=== PATIENT | female | born 1975 | race Caucasian/White ===

== ENCOUNTER 2020-10-31 19:39 | Emergency (ER) | payer MEDICAID, SELFPAY ==
[2020-10-31 19:40] VITALS: BP 157/84; PULSE 99; RESP 20; TEMP 37.2; O2SAT 97; BMI 37.9
[2020-10-31 21:19] VITALS: RESP 16
--- NOTE | 2020-10-31 21:41 | EX.ED.VISEXT ---
HPI History of Present Illness Chief Complaint: Bite Informant: patient Occured/Mechanism Comment: Bit by insect left index finger Onset/Context/Timing Current Severity: Moderate Maximum Severity: Moderate Worsened by: Nothing Relieved by: Nothing Associated Symptoms Associated Symptoms: Negative for Parasthesia, Weakness and Loss of Funtion Narrative Narrative: Patient presents because of insect bite to left finger. She presents today because of swelling and redness. There is no red streak. She denies fever or chills. She denies respiratory, GI or hemodynamic instability. Tetanus Immunization: <5 years Prior similar symptoms: No Recent Illness/Hospitalization: No ROS ROS ED Constitutional Constitutional ED: Denies chills, fever(s), sweats or weight loss Eyes Eyes: Denies blurry vision or change in vision ENT ENT ED: Denies rhinorrhea or sore throat Cardiovascular Cardiovascular: Denies chest pain or palpitations Respiratory/Chest Respiratory/Chest: Denies cough, dyspnea or dyspnea on exertion Gastrointestinal Gastrointestinal: Denies diarrhea, nausea or vomiting Integumentary Reports rash Hematologic/Lymphatic Hematologic/Lymphatic: Denies easy bleeding or easy bruising Allergic/Immunologic Allergic/Immunologic ED: Denies mouth swelling, tongue swelling or urticaria PFSH PFS Medical History Asthma COPD (chronic obstructive pulmonary disease) Hypertension Myocardial infarct Home Medications albuterol sulfate 2 puff INHALATION Q4H PRN PRN 10/31/20 [History Last Taken Unknown] aspirin 81 mg PO DAILY 10/31/20 [History Last Taken Unknown] famotidine 20 mg PO BID #10 tablet 10/31/20 [Rx Last Taken Unknown] loratadine [Claritin] 10 mg PO DAILY #5 tab 10/31/20 [Rx Last Taken Unknown] losartan 75 mg PO DAILY 10/31/20 [History Last Taken Unknown] Allergy/AdvReac Type Severity Reaction Status Date / Time bee venom protein (honey bee) AdvReac Shortness Verified 10/31/20 19:42 of breath Social History (Updated 10/31/20 @ 21:[address] Butch Davila MD) Smoking Status: Unknown if ever smoked alcohol intake: current alcohol intake frequency: holidays/special occasions only substance use type: does not use EXAM Physical Exam Const Vital Signs: 10/31/20 19:40 10/31/20 21:19 Temperature 98.9 F Temperature Source Temporal Pulse Rate 99 Respiratory Rate 20 H 16 Blood Pressure 157/84 H Blood Pressure Mean 108 Pulse Ox 97 Oxygen Delivery Method Room Air Positive well nourished, well developed and obese General Appearance ED: well developed Nutritional Appearance: obese HEENT HEENT Narrative: There is no evidence of angioedema. atraumatic Eyes PERRL and EOMs intact bilaterally Neck full ROM and no lymphadenopathy Neck Narrative: Trachea is midline. There is no inspiratory stridor. General: tenderness Resp normal respiratory effort and clear to auscultation bilaterally Cardio regular rate, regular rhythm, S1 normal heart sound, S2 normal heart sound and no murmurs Extremity full ROM; Negative for normal to inspection Extremity Narrative: Patient has local reaction due to insect bite. There is no evidence of cellulitis. General Extremety ED: Yes edema; Negative for deformity General Extremity: edema; Negative for deformity Neuro oriented x3, CN's II-XII intact bilaterally and no sensory deficits noted Sensorium / Orientation: alert Motor Exam: strength 5/5 throughout Psych mental status grossly normal and thought process normal Skin Skin Narrative: Rash due to allergic local reaction MDM MDM MDM Narrative Medical decision making narrative: Patient was informed the reason they are swelling because his compartments in the hand. This is not unexpected. There is no evidence of infection. This is a local reaction. She was treated with H1 and H2 blockers. She does not require epinephrine. Patient received first dose in the emergency Pe[facility]ra prescriptions were filled here at the hospital. Discharge Plan Triage Chief Complaint: Bite ED Provider: Butch Davila Dx/Rx/DC Orders Clinical Impression: Allergic reaction Instructions: ED General Allergic Reactions Prescriptions: New famotidine [famotidine] 20 MG tablet 20 mg PO BID Qty: 10 RF: 0 loratadine [Claritin] 10 mg tablet 10 mg PO DAILY Qty: 5 RF: 0 No Action losartan 50 mg tablet 75 mg PO DAILY RF: 0 aspirin 81 mg tablet,delayed release (DR/EC) 81 mg PO DAILY RF: 0 albuterol sulfate 90 mcg/actuation HFA aerosol inhaler 2 puff INHALATION Q4H PRN PRN (Reason: Shortness Of Breath) RF: 0 Primary Care Provider: Care Physician,No Primary Referrals: Care Physician,No Primary [Primary Care Provider] - Doctor,Your [STAFF PHYSICIAN] - As Needed Disposition Disposition: Home, Self Care
[2020-10-31] MEDS: Loratadine 10 MG Tablet PO (22:06)
[2020-10-31] MEDS: Famotidine 20 MG Tablet PO (22:06)
[2020-10-31 22:08] VITALS: RESP 16
== END 2020-10-31 22:08 | disposition home or self-care (01) ==
PROVIDERS: Emergency Provider Emergency Medicine
DX: S60.461A Insect bite (nonvenomous) of left index finger, initial encounter (principal); W57.XXXA Bitten or stung by nonvenomous insect and other nonvenomous arthropods, initial encounter; Y93.9 Activity, unspecified; Y92.9 Unspecified place or not applicable; E66.9 Obesity, unspecified; Z68.37 Body mass index [BMI] 37.0-37.9, adult; J44.9 Chronic obstructive pulmonary disease, unspecified; I10 Essential (primary) hypertension; I25.2 Old myocardial infarction; Z79.82 Long term (current) use of aspirin; Z79.899 Other long term (current) drug therapy
CPT/HCPCS: 99283

== ENCOUNTER 2021-05-09 13:42 | Emergency (ER) | payer MEDICAID, SELFPAY ==
[2021-05-09 13:43] VITALS: BP 178/94; PULSE 108; RESP 22; TEMP 36.3; O2SAT 100; BMI 37.3
[2021-05-09 14:16] VITALS: BP 178/94; PULSE 108; RESP 22; TEMP 36.3; O2SAT 100
--- NOTE | 2021-05-09 14:16 | EKG12_ITS ---
Test Reason : PALPS Blood Pressure : / mmHG Vent. Rate : 098 BPM Atrial Rate : 098 BPM P-R Int : 112 ms QRS Dur : 084 ms QT Int : 372 ms P-R-T Axes : 025 001 016 degrees QTc Int : 474 ms Normal sinus rhythm Normal ECG Confirmed by PAMELA GLYNN, KIAN ([id number]), proposal editor YE MCKENZIE ([id number]) on 05/10/2021 9:24:31 AM Referred By: BARON Confirmed By:KIAN SANTIAGO MD
--- NOTE | 2021-05-09 14:16 | RAD_ITS ---
STUDY: X-RAY CHEST REASON FOR EXAM: Female, 46 years old. Cough TECHNIQUE: Single AP portable view of the chest. COMPARISON: None. FINDINGS: EKG electrodes are seen. Questionable mild early right lower lobe infiltrate. There is no demonstrated pleural abnormality. Normal size heart. Normal mediastinum and gigi. Normal visualized pulmonary arteries. Normal visualized aortic arch and descending thoracic aorta. Normal visualized thoracic spine. Normal visualized ribs, clavicles, and shoulders. There is no demonstrated abnormality of the visualized soft tissue structures of the upper abdomen. RAD/Chest 1 View (Portable) IMPRESSION: Questionable mild early right lower lobe infiltrate. Electronically Signed: Néstor Pace MD at 15:08 EST ,
--- NOTE | 2021-05-09 14:17 | EX.ED.DYSGE1 ---
HPI History of Present Illness Chief Complaint: General Illness Informant: patient Narrative Narrative: Patient's states she wants to know if she has had a heart attack. About 3 days ago she started coughing more. No sputum production. She states she is wheezing more. She has a ProAir inhaler but she is running out and it does not seem to help. She has some soreness on the left when she coughs. She also states her heart feels like a pair of butterfly wings that flap now and then. This lasts for a second and only occurs randomly. This does not cause pain. She is not actually dyspneic. She has had no nausea vomiting or diaphoresis. No congestion or sore throat. No change in taste or smell. No diarrhea. She is a smoker and was counseled to quit. Patient's had no recent travel, surgery, immobilization, personal or family history of DVT or PE. Patient states that she had a heart attack about 8 or 10 years ago. She states she was somewhere in a hospital in [place]. They did a stress test. She does not know if they did blood work. They never did a heart catheterization. They told her she should take aspirin which she has been doing. No follow-up was arranged. [facility] Medical History Asthma COPD (chronic obstructive pulmonary disease) Hypertension Myocardial infarct Home Medications albuterol sulfate 2 puff INHALATION Q4H PRN PRN 10/31/20 [History Last Taken Unknown] aspirin 81 mg PO DAILY 10/31/20 [History Last Taken Unknown] famotidine 20 mg PO BID #10 tablet 10/31/20 [Rx Last Taken Unknown] loratadine [Claritin] 10 mg PO DAILY #5 tab 10/31/20 [Rx Last Taken Unknown] losartan 75 mg PO DAILY 10/31/20 [History Last Taken Unknown] albuterol sulfate 2.5 mg INHALATION Q4H PRN #25 vial 05/09/21 [Rx Last Taken Unknown] doxycycline monohydrate 100 mg PO BID #20 cap 05/09/21 [Rx Last Taken Unknown] prednisone 60 mg PO DAILY #15 tab 05/09/21 [Rx Last Taken Unknown] Allergy/AdvReac Type Severity Reaction Status Date / Time amoxicillin Allergy Hives Verified 05/09/21 13:45 Penicillins [PCN] Allergy Hives Verified 05/09/21 13:45 bee venom protein (honey bee) AdvReac Shortness Verified 05/09/21 13:45 of breath Social History Smoking Status: Current every day smoker tobacco type: cigarettes alcohol intake: current alcohol intake frequency: holidays/special occasions only substance use type: does not use ROS ROS ED Constitutional Constitutional ED: Denies chills, fever(s) or subjective Eyes Eyes: Denies blurry vision ENT ENT ED: Denies rhinorrhea or sore throat Cardiovascular Cardiovascular: Reports chest pain and palpitations; Denies racing heartbeat Respiratory/Chest Respiratory/Chest: Reports cough; Denies dyspnea, dyspnea on exertion or sputum Gastrointestinal Gastrointestinal: Denies abdominal pain, diarrhea, nausea or vomiting Genitourinary Genitourinary ED: Denies dysuria Musculoskeletal Musculoskeletal: Denies myalgias Integumentary Denies rash Neurologic Neurologic: Reports headache(s) and other Details: She states that sometimes she has a headache if she is coughing a lot. And no other times that she have this. Psychiatric Psychiatric: Denies depression Endocrine Endocrinology: Denies polydipsia or polyuria Allergic/Immunologic Allergic/Immunologic ED: Denies mouth swelling or urticaria EXAM Physical Exam Const Vital Signs: 05/09/21 13:43 05/09/21 14:16 05/09/21 14:27 Temperature 97.4 F L 97.4 F L Temperature Source Temporal Temporal Pulse Rate 108 H 108 H 90 Respiratory Rate 22 H 22 H 20 H Respiratory Effort Respiratory Pattern Normal Blood Pressure 178/94 H 178/94 H Blood Pressure Mean 122 122 Pulse Ox 100 100 Oxygen Delivery Method Room Air Room Air 05/09/21 14:29 Temperature Temperature Source Pulse Rate Respiratory Rate Respiratory Effort Normal Non-Labored Respiratory Pattern Blood Pressure Blood Pressure Mean Pulse Ox Oxygen Delivery Method Positive well nourished, well developed and obese General Appearance ED: well developed and NAD; Negative for cyanotic or diaphoretic Nutritional Appearance: obese HEENT Reports moist mucous membranes Negative for trauma Eyes General Eye ED: Negative for pale conjunctiva or scleral icterus Neck no JVD Chest Wall inspection of chest normal Chest Narrative: Mild left chest wall tenderness in the area that she points to with her finger that hurts with a cough. Resp normal respiratory effort and No clear to auscultation bilaterally Resp Narrative: Patient does have some mild diffuse expiratory wheeze. It is brought out significantly if she takes a deep breath. Effort and Inspection: Negative for pain with movement Auscultation: wheezes; Negative for rales or rhonchi Cardio regular rate and regular rhythm Rate: other Other Details: Heart rate is about 90 at this time. GI normal to inspection, nondistended, normoactive bowel sounds and non-tender Palpation: soft Back/Spine no CVA tenderness Extremity normal to inspection General Extremety ED: Negative for edema or tenderness General Extremity: Negative for edema Neuro oriented x3 Sensorium / Orientation: alert Psych mental status grossly normal Skin no rashes or lesions noted MDM MDM MDM Narrative Medical decision making narrative: Patient CBC is normal. Electrolytes show no marked abnormalities. Despite several days of symptoms, her troponin is 4. Her x-ray does hint of a mild right lower lobe infiltrate. Patient now states she has been getting feelings where she is very cold. She states she could not have Covid because she would have a fever and she feels cold all the time. I again offered to check Covid but she does not want that done. With her increasing cough, chills, x-ray findings I will start antibiotics. She states a azithromycin is hard to get at her drugstore so I will write for doxycycline. We will also write for steroids. She now states that she does have a new albuterol inhaler and refills. But she has no liquid medicine and she does have access to a nebulizer. We also discussed returning if she has worsening pain, hemoptysis, worsening fevers, vomiting or other concerns. Lab Data Attestation: I reviewed the patient's lab results. Labs: Laboratory Results - last 24 hr 05/09/21 05/09/21 14:25 14:25 WBC 6.2 RBC 4.16 L Hgb 13.0 Hct 38.3 MCV 92.1 MCH 31.3 MCHC 33.9 RDW Std Deviation 38.4 RDW Coeff of Gloria 11.3 L Plt Count 266 MPV 9.4 Immature Gran % (Auto) 0.200 Neut % (Auto) 51.1 Lymph % (Auto) 37.9 [place] % (Auto) 8.0 Eos % (Auto) 2.3 Baso % (Auto) 0.5 Absolute Neuts (auto) 3.2 Absolute Lymphs (auto) 2.36 Nucleated RBC % 0 Sodium 140 Potassium 4.1 Chloride 110 H Carbon Dioxide 27.0 Anion Gap 3 L BUN 11 Creatinine 0.78 Estim Creat Clear Calc 95.38 Est GFR (MDRD) Af Amer 102 Est GFR (MDRD) Non-Af 84 BUN/Creatinine Ratio 14.2 Glucose 99 Calcium 8.6 Troponin I High Sens 4 Radiography Diagnostic Testing: Clinical Impression(s) from Imaging Studies Chest X-Ray 05/09/21 14:16 IMPRESSION: Questionable mild early right lower lobe infiltrate. Electronically Signed: Néstor Pace MD at 15:08 EST , EKG Initial EKG: Comments: EKG done for dyspnea, cough, chest pain and fluttering. EKG read by me shows normal sinus rhythm with a rate of 98. No ventricular ectopy. Nonspecific diffuse ST changes but no sign of acute ST elevation or depression. LA interval, QRS duration and QTc are normal. Discharge Plan Triage Chief Complaint: General Illness ED Provider: Chad Lind Dx/Rx/DC Orders Clinical Impression: Asthma exacerbation, Pneumonia Instructions: ED Asthma, Acute (Adult), ED Pneumonia (Adult) Prescriptions: New albuterol sulfate 2.5 MG/3 ML solution for nebulization 2.5 mg inhalation Q4H PRN Qty: 25 RF: 0 prednisone 20 MG tablet 60 mg PO DAILY Qty: 15 RF: 0 doxycycline monohydrate 100 MG capsule 100 mg PO BID Qty: 20 RF: 0 No Action losartan 50 mg tablet 75 mg PO DAILY RF: 0 aspirin 81 mg tablet,delayed release (DR/EC) 81 mg PO DAILY RF: 0 albuterol sulfate 90 mcg/actuation HFA aerosol inhaler 2 puff INHALATION Q4H PRN PRN (Reason: Shortness Of Breath) RF: 0 famotidine [famotidine] 20 MG tablet 20 mg PO BID Qty: 10 RF: 0 loratadine [Claritin] 10 mg tablet 10 mg PO DAILY Qty: 5 RF: 0 Referrals: TIMOTHY PATTEN [Other] - 3-5 Days if not improving Disposition Disposition: Home, Self Care
[2021-05-09 14:27] VITALS: PULSE 90; RESP 20
[2021-05-09] MEDS: Ipratropium/Albuterol Sulfate 3 ML AMPUL.NEB INHALATION (14:27)
[2021-05-09] MEDS: predniSONE 20 MG Tablet 60 MG PO (14:28)
[2021-05-09 14:36] LABS: Absolute Lymphocyte Count 2.36 X10^3/uL (0.83-4.51); Absolute Neutrophil Count 3.2 X10^3/uL (2.0-7.7); Basophil# 0.03 X10^3/uL; Basophil% 0.5 % (0-1); Eosinophil# 0.14 X10^3/uL; Eosinophils% 2.3 % (0-5); Hematocrit 38.3 % (37-47); Lymphocyte # 2.36 X10^3/ul (0.83-4.51); Lymphocyte % 37.9 % (19-41); Mean Corp Hgb Conc 33.9 g/dL (32-36); Mean Corpuscular Hgb 31.3 pg (27.0-32.0); Mean Corpuscular Volume 92.1 fL (81-99); Mean Platelet Vol. 9.4 fl (6.2-12.0); NRBC Flagged by Analyzer 0 % (0-5); Neutrophil # 3.18 X10^3/uL (2.7-7.7); Neutrophil % 51.1 % (47-70); Platelet Count 266 K/mm3 (150-450); RBC Distribution Width CV 11.3 % (11.6-14.6); RBC Distribution Width SD 38.4 fl (35.1-43.9); Red Blood Count 4.16 M/mm3 (4.2-5.4); White Blood Count 6.2 K/mm3 (4.4-11.0)
[2021-05-09 14:53] LABS: Anion Gap 3 (5-15); BUN 11 mg/dL (7-18); BUN/Creat Ratio 14.2 RATIO (10-20); Calcium,Total 8.6 mg/dL (8.5-10.1); Chloride 110 mmol/L (98-107); Creatinine, Serum 0.78 mg/dL (0.55-1.02); EST Glomerular Filtration Rate 84 mL/min (>60); Est Glom Filt Rate - Afr Amer 102 mL/min (>60); Estimated Creatinine Clearance 95.38 ml/min; Glucose 99 mg/dL (74-106); Potassium 4.1 mmol/L (3.5-5.1); Sodium Level 140 mmol/L (136-145); Troponin-I HS 4 pg/mL (3.0-54.0)
[2021-05-09 16:14] VITALS: PULSE 93; RESP 20; O2SAT 99
[2021-05-09] MEDS: Doxycycline 100 MG CAPSULE PO (16:14)
== END 2021-05-09 16:16 | disposition home or self-care (01) ==
PROVIDERS: Emergency Provider Emergency Medicine; Visit Provider Emergency Medicine
DX: J44.1 Chronic obstructive pulmonary disease with (acute) exacerbation (principal); J44.0 Chronic obstructive pulmonary disease with (acute) lower respiratory infection; J18.9 Pneumonia, unspecified organism; I25.2 Old myocardial infarction; I10 Essential (primary) hypertension; E66.9 Obesity, unspecified; F17.210 Nicotine dependence, cigarettes, uncomplicated; Z79.82 Long term (current) use of aspirin; Z79.899 Other long term (current) drug therapy; Z68.37 Body mass index [BMI] 37.0-37.9, adult
CPT/HCPCS: 71045; 80048; 84484; 85025; 93005; 94640; 99283; A4216

== ENCOUNTER 2022-05-25 09:30 | Emergency (ER) | payer MEDICAID, SELFPAY ==
[2022-05-25 09:31] VITALS: BP 161/100; PULSE 88; RESP 18; TEMP 36.6; O2SAT 100; BMI 38.0
--- NOTE | 2022-05-25 09:49 | EKG12_ITS ---
Test Reason : SOB Blood Pressure : / mmHG Vent. Rate : 068 BPM Atrial Rate : 068 BPM P-R Int : 124 ms QRS Dur : 076 ms QT Int : 426 ms P-R-T Axes : 002 015 016 degrees QTc Int : 452 ms Normal sinus rhythm with sinus arrhythmia Normal ECG Confirmed by EVELYN GLYNN, AMY ([id number]), editor map YE MCKENZIE ([id number]) on 05/28/2022 12:35:50 PM Referred By: BRIDGETTE Confirmed By:AMY RIVAS MD
--- NOTE | 2022-05-25 09:51 | EDS_ITS ---
HPI HPI - URI History of Present Illness Chief Complaint: Cough Informant: patient Narrative Narrative: 2-week history sore throat slight productive cough with sinus congestion. No fevers. Cough causing headaches. No vomiting or diarrhea. Reports wheezing. History of asthma and COPD. Reports does not have a PCP. She states she had an OK 5 years ago with no catheter intervention. She is treated medically. Currently on aspirin and blood pressure medications. Tobacco history. She is followed by cardiology Dr. Kiser. She states that did not have a PCP. She states she has been using honey, humidifier, Mucinex. She has rescue inhalers both nebulizer and MDI. Prior similar symptoms: Yes ROS ROS ED Constitutional Constitutional ED: Denies chills, fever(s) or sweats Eyes Eyes: Denies change in vision ENT ENT ED: Denies dysphagia or sore throat Cardiovascular Cardiovascular: Reports palpitations; Denies chest pain, leg edema or racing heartbeat Respiratory/Chest Respiratory/Chest: Reports cough and dyspnea; Denies dyspnea on exertion Gastrointestinal Gastrointestinal: Denies abdominal pain, diarrhea, nausea or vomiting Genitourinary Genitourinary ED: Denies dysuria, hematuria or urinary frequency Musculoskeletal Musculoskeletal: Denies back pain, extremity pain or neck pain Integumentary Denies rash or wounds Neurologic Neurologic: Denies headache(s), paresthesias or weakness [facility] History Asthma COPD (chronic obstructive pulmonary disease) Hypertension Myocardial infarct Home Medications albuterol sulfate 90 mcg/actuation aerosol inhaler 2 puff inhalation Q4H PRN PRN Shortness Of Breath 10/31/20 [History Last Taken Unknown] aspirin 81 mg tablet,delayed release 81 mg PO DAILY 10/31/20 [History Last Taken Unknown] famotidine 20 mg tablet 20 mg PO BID #10 TABLETS 10/31/20 [Rx Last Taken Unknown] loratadine 10 mg tablet (Claritin) 10 mg PO DAILY #5 tabs 10/31/20 [Rx Last Taken Unknown] losartan 50 mg tablet 75 mg PO DAILY 10/31/20 [History Last Taken Unknown] albuterol sulfate 2.5 mg/3 mL (0.083 %) solution for nebulization 2.5 mg (3 mL) inhalation Q4H PRN #25 vials 05/09/21 [Rx Last Taken Unknown] doxycycline monohydrate 100 mg capsule 100 mg PO BID #20 caps 05/09/21 [Rx Last Taken Unknown] prednisone 20 mg tablet 60 mg PO DAILY #15 tabs 05/09/21 [Rx Last Taken Unknown] doxycycline monohydrate 100 mg capsule 100 mg PO BID #20 CAPSULES 05/25/22 [Rx Last Taken Unknown] prednisone 20 mg tablet 60 mg PO DAILY #12 TABLETS 05/25/22 [Rx Last Taken Unknown] Allergy/AdvReac Type Severity Reaction Status Date / Time amoxicillin Allergy Hives Verified 05/25/22 09:34 Penicillins [PCN] Allergy Hives Verified 05/25/22 09:34 bee venom protein (honey bee) AdvReac Shortness Verified 05/25/22 09:34 of breath Social History Smoking Status: Current every day smoker tobacco type: cigarettes alcohol intake: current alcohol intake frequency: holidays/special occasions only substance use type: does not use EXAM Physical Exam Const Vital Signs: 05/25/22 09:31 05/25/22 09:55 Temperature 97.9 F Temperature Source Temporal Pulse Rate 88 Respiratory Rate 18 Respiratory Effort Normal Non-Labored Respiratory Depth Normal Respiratory Pattern Normal Blood Pressure 161/100 H Blood Pressure Mean 120 Pulse Ox 100 Oxygen Delivery Method Room Air Room Air Positive well nourished and well developed General Appearance ED: well developed and NAD HEENT Reports moist mucous membranes normocephalic and atraumatic Eyes PERRL, EOMs intact bilaterally and conjunctivae normal General Eye ED: Yes normal appearance of both eyes Neck no lymphadenopathy and supple General: Negative for tenderness Chest Wall Chest: Negative for tenderness Resp Resp Narrative: Mild expiratory wheeze lower lobes, no distress Effort and Inspection: symmetric chest movement; Negative for respiratory distress Cardio regular rate, regular rhythm and no murmurs Peripheral Pulses: pulses 2+ throughout GI normal to inspection, nondistended, normoactive bowel sounds and non-tender Palpation: Negative for guarding or rebound tenderness present Back/Spine no CVA tenderness and no thoracic nor lumbar tenderness Extremity normal to inspection General Extremety ED: Negative for edema or tenderness General Extremity: Negative for edema Neuro oriented x3 and no sensory deficits noted Sensorium / Orientation: awake and alert Skin no rashes or lesions noted and no wounds MDM MDM MDM Narrative Medical decision making narrative: Interventions / MDM: Differential diagnosis: COPD exacerbation, asthma exacerbation, viral bronchitis, cardiac dysrhythmia Diagnosis considered but do not suspect: COVID infection however reported 3 test at home are negative, pulmonary embolism however not hypoxic no respiratory distress. Heart rate is normal. My EKG interpretation: Sinus rate of 68, no ST or T wave changes. Imaging independently reviewed and interpreted by myself: N/A External documents reviewed: N/A Test considered but not ordered:N/A ED course: No signs stable no respiratory distress minimal wheezing on exam. History of asthma and COPD with tobacco history. Discussed URI symptoms with acute flare of her asthma and COPD. According to golds criteria she will require treatment due to changes from baseline. No indication for imaging as plan is to start medications. Prednisone and doxycycline were started. Prescription sent to her pharmacy. She reports does have her rescue inhaler and medication for nebulizer at home for which she will continue to use. EKG obtained due to her palpitations normal sinus rhythm. She is given follow-up with PCP as an outpatient. All questions were answered. Re-evaluation: stable and improved Disposition discussed with patient/family/significant other: Case discussed with consulting clinician: N/A EKG Initial EKG: Attestation: I personally reviewed and interpreted this EKG as follows: Comments: Sinus rate of 68, no ST or T wave changes. Discharge Plan Triage Chief Complaint: Cough ED Provider: Stevie Reyes Dx/Rx/DC Orders Clinical Impression: COPD exacerbation, Asthma, Tobacco dependence, Palpitation Instructions: ED Asthma, Acute (Adult), ED COPD Flare Prescriptions: New prednisone 20 mg tablet 60 mg PO DAILY Qty: 12 0RF doxycycline monohydrate 100 mg capsule 100 mg PO BID Qty: 20 0RF No Action losartan 50 mg tablet 75 mg PO DAILY Label Comments: TAKE 1 TABLET EVERY DAY aspirin 81 mg tablet,delayed release (DR/EC) 81 mg PO DAILY albuterol sulfate 90 mcg/actuation HFA aerosol inhaler 2 puff INHALATION Q4H PRN PRN (Reason: Shortness Of Breath) Label Comments: INHALE 1 PUFF NEEDED EVERY 4 HOURS FOR 30 DAYS famotidine [famotidine] 20 MG tablet 20 mg PO BID Qty: 10 0RF loratadine [Claritin] 10 mg tablet 10 mg PO DAILY Qty: 5 0RF albuterol sulfate 2.5 MG/3 ML solution for nebulization 2.5 mg inhalation Q4H PRN Qty: 25 0RF Rx Instructions: Use q4 hours and PRN for wheezing prednisone 20 MG tablet 60 mg PO DAILY Qty: 15 0RF doxycycline monohydrate 100 MG capsule 100 mg PO BID Qty: 20 0RF Primary Care Provider: NOT,DEFINED Referrals: Aditya Allen MD [Med Staff - Active Staff] - 1-2 Weeks NOT,DEFINED [Primary Care Provider] - Disposition Disposition: Home, Self Care
[2022-05-25] MEDS: predniSONE 20 MG Tablet 60 MG PO (09:54)
[2022-05-25] MEDS: Doxycycline 100 MG CAPSULE PO (09:59)
== END 2022-05-25 10:38 | disposition home or self-care (01) ==
LOC: ED 10:37
PROVIDERS: Emergency Provider Emergency Medicine; Visit Provider Emergency Medicine
DX: J44.1 Chronic obstructive pulmonary disease with (acute) exacerbation (principal); R00.2 Palpitations; R51.9 Headache, unspecified; F17.210 Nicotine dependence, cigarettes, uncomplicated; I10 Essential (primary) hypertension; J45.909 Unspecified asthma, uncomplicated; I25.2 Old myocardial infarction; Z79.82 Long term (current) use of aspirin; Z79.899 Other long term (current) drug therapy
CPT/HCPCS: 93005; 99283

== ENCOUNTER 2023-05-21 15:00 | Emergency (ER) | payer OTHER, SELFPAY ==
[2023-05-21 15:01] VITALS: BP 182/107; PULSE 113; RESP 18; TEMP 36.6; O2SAT 100
[2023-05-21 15:22] VITALS: BP 146/85; PULSE 95; RESP 12; O2SAT 100
--- NOTE | 2023-05-21 15:55 | RAD_ITS ---
INDICATION: chest pain EXAMINATION/TECHNIQUE: X-RAY - XR Chest 1 View COMPARISON: 05/09/2021 FINDINGS: The lungs are clear. The cardiomediastinal silhouette is unremarkable. No pleural effusion or pneumothorax. No acute osseous abnormalities. RAD/Chest 1 View (Portable) IMPRESSION: No acute radiographic abnormalities. Electronically Signed: Marcelo Boone MD at 16:22 EST ,
[2023-05-21 16:32] LABS: Absolute Lymphocyte Count 2.75 X10^3/uL (0.83-4.51); Absolute Neutrophil Count 3.2 X10^3/uL (2.0-7.7); Basophil# 0.05 X10^3/uL; Basophil% 0.7 % (0-1); Eosinophil# 0.15 X10^3/uL; Eosinophils% 2.2 % (0-5); Hematocrit 41.2 % (37-47); Hemoglobin 13.9 g/dL (12.0-15.0); Lymphocyte # 2.75 X10^3/ul (0.83-4.51); Lymphocyte % 40.6 % (19-41); Mean Corp Hgb Conc 33.7 g/dL (32-36); Mean Corpuscular Hgb 30.3 pg (27.0-32.0); Mean Corpuscular Volume 89.8 fL (81-99); Mean Platelet Vol. 10.2 fl (6.2-12.0); Monocyte# 0.61 X10^3/uL; NRBC Flagged by Analyzer 0 % (0-5); Neutrophil # 3.21 X10^3/uL (2.7-7.7); Neutrophil % 47.4 % (47-70); Platelet Count 313 K/mm3 (150-450); RBC Distribution Width CV 11.4 % (11.6-14.6); RBC Distribution Width SD 37.1 fl (35.1-43.9); Red Blood Count 4.59 M/mm3 (4.2-5.4); White Blood Count 6.8 K/mm3 (4.4-11.0)
--- NOTE | 2023-05-21 16:33 | EDS_ITS ---
HPI History of Present Illness Chief Complaint: Hypertension Narrative Narrative: 48-year-old female with history of COPD, hypertension, CAD presenting to the ER for vertiginous symptoms. Patient states earlier this morning at about 8:30 AM when she woke up she felt dizzy. She felt like she was off balance and vertiginous in nature. She felt nauseous. She sat on her bed for about 20 minutes and the symptoms all resolved. She is able to get up and use the restroom and then come back to her room which she also describes as her office. She states while she was feeling dizzy she checked her blood pressure and it was very elevated. She states that she called her nurse practitioner who told her she believes that she had cardiac arrest . She said to go straight to the emergency room. The patient herself states she had a fleeting 5 seconds of some irritation to the chest which she does not describe as chest pressure, pleuritic chest pain. She does not have lightheadedness and she is off balance. No fevers or chills. She states she drinks plenty of water and does not have any concern for dehydration. She not had any fevers or chills. No nausea or vomiting. She has had some episodes of diarrhea. She feels generally well however. [facility] Medical History Asthma COPD (chronic obstructive pulmonary disease) Drug addiction in remission Hypertension Myocardial infarct Home Medications albuterol sulfate 90 mcg/actuation aerosol inhaler 2 puff inhalation Q4H PRN PRN Shortness Of Breath 10/31/20 [History Last Taken Unknown] aspirin 81 mg tablet,delayed release 81 mg PO DAILY 10/31/20 [History Last Taken Unknown] albuterol sulfate 2.5 mg/3 mL (0.083 %) solution for nebulization 2.5 mg (3 mL) inhalation Q4H PRN #25 vials 05/09/21 [Rx Last Taken Unknown] fluticasone fur. 200 mcg-umeclid 62.5 mcg-vilant 25 mcg inhalat.powder (Trelegy Ellipta) 1 inh inhalation DAILY 05/10/23 [History Last Taken Unknown] losartan 50 mg tablet 100 mg PO DAILY 05/10/23 [History Last Taken Unknown] metoprolol succinate 25 mg tablet,extended release 24 hr 50 mg PO DAILY 05/10/23 [History Last Taken Unknown] meclizine 25 mg tablet 25 mg PO TID PRN dizziness #30 tabs 05/21/23 [Rx Last Taken Unknown] Allergy/AdvReac Type Severity Reaction Status Date / Time amoxicillin Allergy Hives Verified 05/25/22 09:34 Penicillins [PCN] Allergy Hives Verified 05/25/22 09:34 bee venom protein (honey bee) AdvReac Shortness Verified 05/25/22 09:34 of breath Family History Grandfather CVA (cerebral vascular accident) Cancer Diabetes Heart disease Father Diabetes Kidney disease Thyroid disorder Mother Kidney disease Uterine cancer Social History Smoking Status: Current every day smoker tobacco type: cigarettes alcohol intake: current alcohol intake frequency: holidays/special occasions only substance use type: does not use ROS ROS ED Constitutional Constitutional ED: Reports other Details: Vertiginous dizziness ; Denies chills, fever(s) or sweats Eyes Eyes: Denies blurry vision or change in vision ENT ENT ED: Denies ear pain or sore throat Cardiovascular Cardiovascular: Reports chest pain; Denies palpitations or racing heartbeat Respiratory/Chest Respiratory/Chest: Denies cough, dyspnea or sputum Gastrointestinal Gastrointestinal: Denies abdominal pain, constipation, diarrhea, nausea or vomiting Genitourinary Genitourinary ED: Denies dysuria, hematuria or urinary frequency Musculoskeletal Musculoskeletal: Denies arthralgias, myalgias or neck pain Integumentary Denies abscess, Abrasions or rash Neurologic Neurologic: Denies headache(s), paresthesias or weakness Psychiatric Psychiatric: Denies anxiety, depression, suicidal ideation or suicidal thoughts Endocrine Endocrinology: Denies polydipsia or polyuria EXAM Physical Exam Const Vital Signs: 05/21/23 15:01 05/21/23 15:20 05/21/23 15:21 Temperature 97.9 F Temperature Source Temporal Pulse Rate 113 H Respiratory Rate 18 Respiratory Effort Normal Short of Breath Respiratory Pattern Normal Normal Blood Pressure 182/107 H Blood Pressure Mean 132 Pulse Ox 100 Oxygen Delivery Method Room Air 05/21/23 15:22 05/21/23 15:49 05/21/23 17:30 Temperature Temperature Source Pulse Rate 95 89 Respiratory Rate 12 12 Respiratory Effort Respiratory Pattern Blood Pressure 146/85 H 130/80 H Blood Pressure Mean 105 96 Pulse Ox 100 99 Oxygen Delivery Method Room Air Room Air Room Air Positive well nourished General Appearance ED: ALONSO CANTU Reports moist mucous membranes Eyes PERRL and EOMs intact bilaterally Neck no lymphadenopathy Chest Wall inspection of chest normal Resp normal respiratory effort and clear to auscultation bilaterally Auscultation: wheezes scattered wheezes; Negative for rales or rhonchi Cardio regular rate and regular rhythm GI normal to inspection, nondistended, normoactive bowel sounds Neuro oriented x3 and CN's II-XII intact bilaterally Sensorium / Orientation: alert Psych mental status grossly normal Mood & Affect: anxious MDM MDM MDM Narrative Medical decision making narrative: Patient presenting with elevated blood pressures and vertiginous symptoms. I suspect that the vertiginous symptoms or what was making her feel off balance. I do not believe her blood pressures readings at home are accurate. I certainly do not believe she had a cardiac arrest. I explained to the patient that cardiac arrest means that her heart stops. This point we treated her with meclizine. Her symptoms slowly improved. CBC was obtained to assess white blood cell count, hemoglobin, platelets. BMP to assess renal function electrolytes. High-sensitivity troponin EKG were obtained to assess for ischemia/dysrhythmia. Chest x-ray to rule out pneumonia or other abnormalities. Workup ultimately normal. Chest x-ray my interpretation shows no acute process. EKG on my interpretation shows sinus tachycardia rate 105 bpm without sign ischemic change. Urinalysis negative for infection. Blood pressure is now down to 130/80. Heart rate 89. Pulse ox 99% on room air. I reevaluation the patient is doing well. I discussed sending home with meclizine. I recommended she continue her blood pressure medications and keep a blood pressure diary. Return precautions discussed. Impression: 1. Hypertension?established 2. Vertigo Lab Data Labs: Laboratory Results - last 24 hr 05/21/23 05/21/23 15:15 16:59 WBC 6.8 RBC 4.59 Hgb 13.9 Hct 41.2 MCV 89.8 MCH 30.3 MCHC 33.7 RDW Std Deviation 37.1 RDW Coeff of Gloria 11.4 L Plt Count 313 MPV 10.2 Immature Gran % (Auto) 0.100 Neut % (Auto) 47.4 Lymph % (Auto) 40.6 [place] % (Auto) 9.0 Eos % (Auto) 2.2 Baso % (Auto) 0.7 Absolute Neuts (auto) 3.2 Absolute Lymphs (auto) 2.75 Nucleated RBC % 0 Sodium 138 Potassium 3.6 Chloride 107 Carbon Dioxide 27.0 Anion Gap 4 L BUN 11 Creatinine 0.83 Est GFR (MDRD) Af Amer 94 Est GFR (MDRD) Non-Af 77 BUN/Creatinine Ratio 13.3 Glucose 103 Calcium 9.7 Troponin I High Sens 3 Urine Color Yellow Urine Clarity Clear Urine pH 8.0 Ur Specific [place] 1.010 Urine Protein Negative Urine Glucose (UA) Normal Urine Ketones Negative Urine Occult Blood 10 H Urine Nitrite Negative Urine Bilirubin Negative Urine Urobilinogen Normal Ur Leukocyte Esterase Negative Urine RBC 0-5 SEEN Urine WBC 0 SEEN Ur Squamous Epith Cells 0-5 SEEN Urine Bacteria 0 SEEN Urine Mucus 0 SEEN Radiography Diagnostic Testing: Clinical Impression(s) from Imaging Studies Chest X-Ray 05/21/23 15:55 IMPRESSION: No acute radiographic abnormalities. Electronically Signed: Marcelo Boone MD at 16:22 EST , Discharge Plan Triage Chief Complaint: Hypertension ED Provider: Regulo Moses Dx/Rx/DC Orders Instructions: ED Hypertension, Established, ED Vertigo, Unspecified Prescriptions: New meclizine 25 mg tablet 25 mg PO TID PRN (Reason: dizziness) Qty: 30 0RF No Action Trelegy Ellipta 200-62.5-25 mcg blister with device 1 inh inhalation DAILY metoprolol succinate 25 mg tablet extended release 24 hr 50 mg PO DAILY aspirin 81 mg tablet,delayed release (DR/EC) 81 mg PO DAILY albuterol sulfate 90 mcg/actuation HFA aerosol inhaler 2 puff INHALATION Q4H PRN PRN (Reason: Shortness Of Breath) Patient Comments: INHALE 1 PUFF NEEDED EVERY 4 HOURS FOR 30 DAYS losartan 50 mg tablet 100 mg PO DAILY Patient Comments: TAKE 1 TABLET EVERY DAY albuterol sulfate 2.5 MG/3 ML solution for nebulization 2.5 mg inhalation Q4H PRN Qty: 25 0RF Rx Instructions: Use q4 hours and PRN for wheezing Primary Care Provider: Shayna Squires NP Referrals: Shayna Squires NP, [employer] [Primary Care Provider] - Disposition Disposition: Home, Self Care Discharge Date/Time: 05/21/23 17:34
[2023-05-21] MEDS: Meclizine HCl 25 MG Tablet PO (16:43)
[2023-05-21 17:06] LABS: Bacteria 0 SEEN /hpf (None Seen); Mucous, Urine 0 SEEN /hpf (<or=2+); White Blood Cells 0 SEEN /hpf (0-5)
[2023-05-21 17:06] LABS: Anion Gap 4 (5-15); BUN 11 mg/dL (7-18); BUN/Creat Ratio 13.3 RATIO (10-20); Calcium,Total 9.7 mg/dL (8.5-10.1); Chloride 107 mmol/L (98-107); Creatinine, Serum 0.83 mg/dL (0.55-1.02); EST Glomerular Filtration Rate 77 mL/min (>60); Est Glom Filt Rate - Afr Amer 94 mL/min (>60); Glucose 103 mg/dL (74-106); Potassium 3.6 mmol/L (3.5-5.1); Sodium Level 138 mmol/L (136-145); Troponin-I HS 3 pg/mL (3.0-54.0)
[2023-05-21 17:08] LABS: Color, Urine Yellow (Yellow); Glucose, Dipstick Normal (Normal); Ketone-Dipstick Negative (Negative); Leukocyte Esterase-Dipstick Negative /ul (Negative); Nitrite-Dipstick Negative (Negative); Occult Blood-Urine 10 /ul (Negative); Protein-Dipstick Negative (Negative); Urine Bilirubin Dipstick Negative (Negative); Urine Clarity Clear (Clear); Urine Urobilinogen Normal (Normal)
[2023-05-21 17:24] LABS: Red Blood Cells-Urine 0-5 SEEN /hpf (0-5); Squamous Epithelial Cells - UA 0-5 SEEN /hpf (5-10)
[2023-05-21 17:30] VITALS: BP 130/80; PULSE 89; RESP 12; O2SAT 99
--- OUTSIDE RECORDS SUMMARY | 2023-05-21 19:31 | XMS RPT_ITS | CCD ---
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 End Name Role Phone PROVIDER, UNKNOWN Unavailable Unavailable Viry Doherty Unavailable Unavailable Mayank Ryan Unavailable Unavailable Department, [facility] Pr ovider Department, [facility] Pr ovider Allergies Allergy Classification Reported Allergen(s) Allergy Type Date of Onset Reaction(s) Facility (7 sources) Acetaminophen / HYDROcodone Drug Allergy 3 Itching [facility] (7 sources) Doxycycline Drug Allergy 7 Rash [facility] Work Phone: (3 sources) Penicillins Drug Allergy 3 Hives [facility] (7 sources) traMADol Drug Allergy 9 Itching [facility] (7 sources) Bee Sting Allergy to substance 7 Anaphylaxis [facility] (7 sources) Venom-Honey Bee Drug Allergy 7 Anaphylaxis [facility] (4 sources) Penicillins Drug Allergy 3 [facility] Medications Current Medications Medication Drug Class(es) Dates Sig (Normalized) Sig (Original) perflutren lipid microspheres 1.3 mL in NaCl (PF) 0.9% 10 mL injection (DEFINITY) (3 sources) Start: 11-30-2020 End: 03-01-2022 perflutren lipid microspheres 1.3 mL in NaCl (PF) 0.9% 10 mL injection (DEFINITY) 125 ml sodium chloride 9 mg/ml prefilled syringe (3 sources) Start: 11-30-2020 End: 03-01-2022 sodium chloride 0.9 % (flush) 10 mL (BD POSIFLUSH) Completed/Discontinued Medications Medication Drug Class(es) Dates Sig (Normalized) Sig (Original) [id number] 200 actuat albuterol 0.09 mg/actuat metered dose inhaler (14 sources) beta2-Adrenergic Agonist Start: 05-05-2021 take 1 puff(s) by inhalation every four hours as needed PROAIR HFA 90 mcg/actuation inhaler INHALE 1 PUFF EVERY 4 HOURS NEEDED 0 05/05/2021 Active Problems Active Problems Problem Classification Problem Date Documented Da te Episodic/Chronic Anxiety disorders (9 sources) Generalized anxiety disorder; Translations: [Anxiety] Onset: 05-08-2017 06-20-2021 Chronic Asthma (9 sources) Unspecified asthma, uncomplicated; Translations: [Asthma] Onset: 09-06-2015 09-06-2015 Chronic Essential hypertension (7 sources) Hypertensive disorder; Translations: [Essential (primary) hypertension] Onset: 06-20-2021 06-20-2021 Chronic Heart valve disorders (6 sources) Rheumatic tricuspid insufficiency; Translations: [Nonrheumatic aortic (valve) insufficiency] Onset: 05-08-2017 Chronic Mood disorders (7 sources) Depressive disorder; Translations: [Depression] 06-28-2016 Chronic Substance-related disorders (16 sources) Nicotine dependence, unspecified, uncomplicated; Translations: [Drug addict ] Onset: 05-08-2017 12-11-2017 Chronic Past or Other Problems Problem Classification Problem Date Documented Da te Episodic/Chronic Allergic reactions (6 sources) Allergy status to penicillin; Translations: [Bee allergy status] Onset: 05-08-2017 Episodic Cardiac dysrhythmias (2 sources) Tachycardia, unspecified; Translations: [Tachycardia, unspecified] Onset: 05-08-2017 Episodic Nonspecific chest pain (9 sources) Chest pain, unspecified; Translations: [Chest pain] Onset: 05-07-2017 06-20-2021 Episodic Open wounds of extremities (7 sources) Laceration of hand; Translations: [Laceration without foreign body of unspecified hand, initial encounter] Onset: 07-24-2016 07-24-2016 Episodic Other circulatory disease (2 sources) Elevated blood-pressure reading, without diagnosis of hypertension; Translations: [Elevated blood-pressure reading, w/o diagnosis of htn] Onset: 05-08-2017 Episodic Other connective tissue disease (7 sources) Pain in right hand; Translations: [Pain in right hand] Onset: 07-24-2016 07-24-2016 Episodic Residual codes; unclassified (7 sources) Tobacco user; Translations: [Tobacco use] Onset: 05-08-2017 06-20-2021 Episodic Spondylosis; intervertebral disc disorders; other back problems (7 sources) Acute low back pain; Translations: [Acute low back pain without sciatica] Onset: 07-24-2016 07-24-2016 Episodic Unclassified (2 sources) Family history of ischemic heart disease and other diseases of the circulatory system; Translations: [Family hx of ischem heart dis and oth dis of the circ sys] Onset: 05-08-2017 Episodic Results Test Name Value Interpretation Reference Range Facil ity Encounters Encounter Date Encounter Type Care Provider Facility Start: 12-20-2022 Refill Chester Kiser MD Work Phone: Cardiology Procedures Date Procedure Procedure Detail Performing Clinician Start: 05-24-2016 Mammography Chester Kiser MD Work Phone: Plan of Treatment Date Care Activity Detail Author Start: 06-28-2024 DIABETES SCREEN DIABETES SCREEN [facility] Start: 12-14-2022 Influenza vaccination C [facility] Start: 12-14-2021 Influenza vaccination INFLUENZA (Sea son Ended) [facility] Start: 05-24-2021 LIPID SCREEN LIPID SCREEN [facility] Start: 04-30-2021 HPV TESTING HPV TESTING [facility] Start: 04-30-2021 PAP TESTING PAP TESTING [facility] Start: 12-14-2020 Influenza vaccination INFLUENZA (#1) [facility] Start: 2018 COLOGUARD (FIT-DNA) COLOGUARD (FIT-D NA) [facility] Start: 2018 Colonoscopy COLONOSCOPY [facility] Start: 2018 COLORECTAL CANCER SCREENING COLORECTAL CANCER SCREENING [facility] Start: [address] COLONOGRAPHY [facility] Start: 2018 FECAL OCCULT BLOOD FECAL OCCULT BLOO D [facility] Start: 2018 SIGMOIDOSCOPY SIGMOIDOSCOPY [facility] Start: 05-24-2017 Mammography MAMMOGRAM [facility] Start: 02-24-1992 Urine microalbumin profile DTAP,TDAP ,TD (1 - Tdap) [facility] Start: 1991 ANNUAL PCP TEAM YARDAGE ESTIMATOR MARTHA DISEASE VISIT ANNUAL PCP TEAM CHRONIC DISEASE VISIT [facility] Start: 1991 BP CONTROLLED (<130/80) BP CONTROLLE D (<130/80) [facility] Start: 1991 HEPATITIS C SCREENING HEPATITIS C SC EVERARDO [facility] Start: 1991 HIV SCREENING HIV SCREENING [facility] Start: 1991 SPIROMETRY SPIROMETRY [facility] Start: 1979 PNEUMOCOCCAL (1 - PCV) PNEUMOCOCCAL (1 - PCV) [facility] Start: 1978 COVID-19 VACCINE (1) COVID-19 VACCIN E (1) [facility] Start: 1973 COVID-19 VACCINE (#1) COVID-19 VACCI NE (#1) [facility] Start: 1973 HEPATITIS B (1 of 3 - 3-dose series) HEPATITIS B (1 of 3 - 3-dose series) [facility] Payers Date Payer Category Payer Medicaid [id number] 2020 Medicaid [employer] MEDICA[employer] [id number] 2020-Present [phone] [address] [place] [address] Medicaid [id number] Unknown Social History Date Type Detail Facility Start: 09-05-1980 End: 07-29-2018 Tobacco smoking status NHIS Smokes tobacco daily [facility] Start: 09-05-1980 History of tobacco use Cigarette Smo ker [facility] Start: 05-09-2012 End: 11-30-2020 Cigarettes smoked current (pack per day) - Reported 2 [facility] Start: 05-09-2012 End: 07-29-2018 Tobacco use and exposure Smokeless tobacco non-user [facility] Start: 06-21-2021 Alcohol intake 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 Start: 06-20-2021 Gender identity Identifies as female gender (finding) [facility] Start: 06-20-2021 Sexual orientation Heterosexual (fin ding) [facility] Clinical Notes 09-06-2015 to 12-20-2022 Telephone Encounter - Shan Dimas LPN - 12/20/2022 3:49 PM EDTTelephone Encounter - Maricel Murrieta MA - 10/11/2022 3:36 PM EDTTelephone Encounter - Brooklyn Yin - 08/16/2022 7:05 PM EDT Note Date & Type Note Facility 12-20-2022 Miscellaneous Notes Formattin g of this note is different from the original. Patient's request for medication is as follows: Requested Prescriptions Pending Prescriptions Disp Refills metoprolol succinate ER (TOPROL XL) 25 mg 24 hr tablet [Pharmacy Med Name: metoprolol succinate ER 25 mg tablet,extended release 24 hr] 90 tablet 0 Sig: Take 1 tablet by mouth once daily. Last seen 06/21/2021. Follow up scheduled for 12/26/2022. Prescription(s) as above. Please process accordingly. Shan Dimas LPN documented in this encounter [facility] 10-11-2022 Miscellaneous Notes Formattin g of this note is different from the original. Patient's request for medication is as follows: Requested Prescriptions Pending Prescriptions Disp Refills metoprolol succinate ER (TOPROL XL) 25 mg 24 hr tablet [Pharmacy Med Name: metoprolol succinate ER 25 mg tablet,extended release 24 hr] 90 tablet 0 Sig: Take 1 tablet by mouth once daily. Refused due to just refilled for 90 days on 09.27.22, that's enough to get to patient next appointment on 12.26.22. Prescription(s) as above. Please process accordingly. Maricel Murrieta MA documented in this encounter [facility] 08-16-2022 Miscellaneous Notes Formattin g of this note might be different from the original. Patient called saying that her grandson knocked her prescritpion of metoprolol into the toliet. She is inquiring about getting another prescription for that. Please advise documented in this encounter [facility] 08-16-2022 Miscellaneous Notes Formattin g of this note is different from the original. Patient's request for medication is as follows: Requested Prescriptions Refused Prescriptions Disp Refills metoprolol succinate ER (TOPROL XL) 25 mg 24 hr tablet [Pharmacy Med Name: metoprolol succinate ER 25 mg tablet,extended release 24 hr] 90 tablet 3 Sig: TAKE 1 TABLET BY MOUTH ONCE DAILY Refused By: THERON CARVAJAL Reason for Refusal: A Refill not appropriate Patient needs appointment; last seen 06/21/2021. No show for appointment on 08/16/2021 asked pharmacy to forward to PCP Prescription(s) as above. Please process accordingly. Theron Carvajal LPN documented in this encounter [facility] 08-04-2021 Miscellaneous Notes Patient's request for medication is as follows: Pending Prescriptions Disp Refills METOPROLOL SUCCINATE ER 25 MG TABLET,EXTENDED RELEASE 24 HR 90 tablet 3 Sig: Take 1 tablet by mouth once daily. CUCO: Yes Patient last seen 06/21/2021. Next appt scheduled for 08/16/2021. Prescription(s) as above. Please process accordingly. Elli Leroy LPN documented in this encounter [facility] 07-06-2021 Miscellaneous Notes Called pt.Left VM to call back. ----- Message from Chester Kiser MD sent at 07/06/2021 9:43 AM EDT ----- Please inform patient that patch monitor showed couple of short runs of fast heart rhythm called SVT. This was seen on her previous Holter monitor that she wore sometime back. This is a benign type of fast heart rhythm. I had started her on Toprol-XL 25 mg daily at recent office visit for her symptoms of palpitations. Please inquire if the medication that I started is helping with her symptoms. If she is still feeling palpitations please ask her to increase the dose to 50 mg daily. Chester Kiser MD documented in this encounter [facility] 07-06-2021 Miscellaneous Notes Called pt and requested return call. Call back pending at this time. ----- Message from Chester Kiser MD sent at 07/06/2021 9:43 AM EDT ----- Please inform patient that patch monitor showed couple of short runs of fast heart rhythm called SVT. This was seen on her previous Holter monitor that she wore sometime back. This is a benign type of fast heart rhythm. I had started her on Toprol-XL 25 mg daily at recent office visit for her symptoms of palpitations. Please inquire if the medication that I started is helping with her symptoms. If she is still feeling palpitations please ask her to increase the dose to 50 mg daily. 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 No PATIENT GENDER DATA: .female : No ALLERGIES: Reviewed and unchanged MEDICATIONS REVIEWED: Not applicable PATIENT RELEVANT IMPLANT DATA REVIEWED: Not Applicable CREATININE: Creatinine Date Value Ref Range Status 05/24/2016 0.83 0.51 - 0.95 mg/dL Final 08/27/2015 0.86 0.70 - 1.40 mg/dL Final 08/23/2015 0.68 0.51 - 0.95 mg/dL Final eGFR-All Other Races Date Value Ref Range Status 08/27/2015 >60 . Final Comment: eGFR (Estimated GFR) Units of measure: mL/min/1.73 meters squared eGFR is derived from the reexpressed MDRD Study equation using the following parameters: serum creatinine, age, gender and race. The creatinine assay has been calibrated to be traceable to IDMS. An eGFR <60 mL/min/1.73m2 for >3 months is consistent with chronic kidney disease. Refer to KDOQI guidelines for clinical interpretation. In patients with unstable renal function, e.g. those with acute kidney injury, the eGFR may not accurately reflect actual GFR. eGFR- Date Value Ref Range Status 08/27/2015 >60 Final P.O.C.T. RESULTS: N/A December 15, [address] PERFORMED: No IV SITE: Ambulatory: A peripheral IV was started in the Right antecubital site with a Angio cath: 22 gauge. POST EXAM PIV STATUS: Discontinued PROCEDURE TYPE: UT Stress: 15.6mCi [id number] was administered IV for Rest Imaging at 12:02 by Sue Zepeda APRN.CNM. 48.8 mCi [id number] was administered IV for Stress Imaging at 13:08 by Sue Zepeda APRN.CNM. ADMINISTRATION TIME: 12:02 PATIENT DISCHARGED TO: Ambulatory patient, left UT department area. A Diagnostic radioactive procedure has taken place, with no further precautions necessary other than routine body substance precautions. More information regarding radiation safety can be found using this link: [email or web address] SIGNATURE: Sue Zepeda APRN.CNM PATIENT NAME: Tona Varela DATE: December 15, 2020 TIME: 3:02 PM PAGER/CONTACT #: [facility] documented as of this encounter (statuses as of 07/06/2021) [facility] History of Past illness Narrative* Problem Noted Date Resolved Date Cholelithiasis 09/06/2015 10/03/2015 Gallstones 09/06/2015 10/03/2015 documented as of this encounter (statuses as of 08/04/2021) [facility] History of Past illness Narrative* Problem Noted Date Resolved Date Cholelithiasis 09/06/2015 10/03/2015 Gallstones 09/06/2015 10/03/2015 documented as of this encounter (statuses as of 08/16/2022) [facility] History of Past illness Narrative* Problem Noted Date Resolved Date Cholelithiasis 09/06/2015 10/03/2015 Gallstones 09/06/2015 10/03/2015 documented as of this encounter (statuses as of 08/17/2022) [facility] History of Past illness Narrative* Problem Noted Date Resolved Date Cholelithiasis 09/06/2015 10/03/2015 Gallstones 09/06/2015 10/03/2015 documented as of this encounter (statuses as of 10/12/2022) [facility] History of Past illness Narrative* Problem Noted Date Diagnosed Date Resolved Date Cholelithiasis 09/06/2015 10/03/2015 Gallstones 09/06/2015 10/03/2015 documented as of this encounter (statuses as of 12/21/2022) [facility] Summary Purpose Family History No Family History Records FoundNo Family History Records FoundNo Family History Records FoundNo Family History Records FoundNo Family History Records FoundNo Family History Records Found Advance Directives Documents on File Type Date Recorded 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 Advance Directive(s) 02/21/2021 1:41 PM Advance Directive(s) 01/12/2021 3:58 PM ET 3 form states patient does not have AD and no info provided by EMS Advance Directive(s) 06/18/2019 1:33 PM Advance Directive(s) 06/15/2019 10:36 AM Advance Directive(s) 07/29/2018 4:50 PM Advance Directive(s) 12/11/2017 8:10 PM Advance Directive(s) 05/04/2017 2:27 PM Advance Directive(s) 09/06/2015 11:18 AM Additional Source Comments INFORMATION SOURCE (unrecogn ized section and content) DATE CREATED AUTHOR AUTHOR'S ORGANIZ ATION 07/30/2018 [facility] DATE CREATED AUTHOR AUTHOR'S ORGANIZ ATION 04/18/2019 [facility] DATE CREATED AUTHOR AUTHOR'S ORGANIZ ATION 12/16/2020 [facility] DATE CREATED AUTHOR AUTHOR'S ORGANIZ ATION 06/29/2021 [facility] DATE CREATED AUTHOR AUTHOR'S ORGANIZ ATION 08/18/2022 [facility] Source Comments (unrecognize d section and content) In the event this informatio n is protected by the Federal Confidentiality of Alcohol and Drug Abuse Patient Records regulations: The Federal rules restrict any use of the information to criminally investigate or prosecute any alcohol or drug abuse patient.[facility] the event this information is protected by the Federal Confidentiality of Alcohol and Drug Abuse Patient Records regulations: The Federal rules restrict any use of the information to criminally investigate or prosecute any alcohol or drug abuse patient.[facility] the event this information is protected by the Federal Confidentiality of Alcohol and Drug Abuse Patient Records regulations: The Federal rules restrict any use of the information to criminally investigate or prosecute any alcohol or drug abuse patient.[facility] the event this information is protected by the Federal Confidentiality of Alcohol and Drug Abuse Patient Records regulations: The Federal rules restrict any use of the information to criminally investigate or prosecute any alcohol or drug abuse patient.[facility] the event this information is protected by the Federal Confidentiality of Alcohol and Drug Abuse Patient Records regulations: The Federal rules restrict any use of the information to criminally investigate or prosecute any alcohol or drug abuse patient.[facility] the event this information is protected by the Federal Confidentiality of Alcohol and Drug Abuse Patient Records regulations: The Federal rules restrict any use of the information to criminally investigate or prosecute any alcohol or drug abuse patient.[facility] the event this information is protected by the Federal Confidentiality of Alcohol and Drug Abuse Patient Records regulations: The Federal rules restrict any use of the information to criminally investigate or prosecute any alcohol or drug abuse patient.[facility] Reason for Visit (unrecogniz ed section and content) Reason Comments Results HM Reason Comments Refill Request Reason Comments Patient Question Care Teams (unrecognized sec tion and content) Desizing Machine Operator Head End Relationship Specialty Start Date End Date Department, [address] [place] [address] PCP - General 02/21/21 Desizing Machine Operator Head End Relationship Specialty Start Date End Date Department, [address] [place] [address] PCP - General 02/21/21 Desizing Machine Operator Head End Relationship Specialty Start Date End Date Department, [place] [address] [place] [address] PCP - General 02/21/21 Desizing Machine Operator Head End Relationship Specialty Start Date End Date Department, [address] [place] [address] PCP - General 02/21/21 FOR RECORDS PERTAINING TO PATIENTS WHO ARE OR HAVE BEEN ENROLLED IN A CHEMICAL DEPENDENCY/SUBSTANCEABUSE PROGRAM, SOME INFORMATION MAY BE OMITTED. This clinical summary was aggregated from multiple sources. Caution should be exercised in using it in the provision of clinical care. This summary normalizes information from multiple sources, and as a consequence, information in this document may materially change the coding, format and clinical context of patient data. In addition, data may be omitted in some cases. CLINICAL DECISIONS SHOULD BE BASED ON THE PRIMARY CLINICAL RECORDS. [facility]. provides no warranty or guarantee of the accuracy or completeness of information in this document.
== END 2023-05-21 17:34 | disposition home or self-care (01) ==
PROVIDERS: Emergency Provider Student in an Organized Health Care Education/Training Program; PCP Nurse Practitioner; Visit Provider Student in an Organized Health Care Education/Training Program
DX: I10 Essential (primary) hypertension (principal); J44.9 Chronic obstructive pulmonary disease, unspecified; R42 Dizziness and giddiness; I25.10 Atherosclerotic heart disease of native coronary artery without angina pectoris; I25.2 Old myocardial infarction; Z79.899 Other long term (current) drug therapy; Z79.82 Long term (current) use of aspirin; Z79.51 Long term (current) use of inhaled steroids; F17.210 Nicotine dependence, cigarettes, uncomplicated
CPT/HCPCS: 71045; 80048; 81001; 84484; 85025; 93005; 99285; J7030; A4216